=== PATIENT | male | born 1955 | race Caucasian/White ===

== ENCOUNTER 2022-05-15 13:22 | Emergency (ER) | payer MEDICARE, SELFPAY ==
[2022-05-15 13:35] VITALS: BP 143/77; PULSE 66; RESP 16; TEMP 36.7; O2SAT 100
--- NOTE | 2022-05-15 13:37 | ED.WOUNDLAC ---
HPI - Wound/Laceration General Chief Complaint: Wound/Laceration Stated Complaint: finger lac Time Seen by Provider: 05/15/22 13:37 Source: patient and RN notes reviewed Mode of arrival: ambulatory Limitations: no limitations History of Present Illness HPI narrative: 66-year-old male presents with concern for injury to the tip of the third digit of the left hand. He reports last night around 8 PM he was using a chain saw when he cut the digit. Reports that it bled for a few minutes and then the bleeding resolved. He reports he trimmed off excess skin that was hanging and a piece of nail that was hanging. He reports he is not up-to-date on his tetanus vaccine. He is also concerned for infection because the wound was very dirty. Reports he cleaned the wound and removed any debris that he saw. Extremity Location: Left: hand Related Data Allergies Allergy/AdvReac Type Severity Reaction Status Date / Time No Known Allergies Allergy Verified 05/15/22 13:31 Review of Systems Review of Systems: CONSTITUTIONAL: Denies malaise, chills, sweats, or fever. SKIN: Reports skin injury to the tip of the third left digit MUSCULOSKELETAL: Denies muscle skeletal pain, decreased range of motion, sensation or strength NEUROLOGIC: Denies numbness, weakness All systems reviewed & are unremarkable except as noted in HPI and below PMFSH Past Medical History Medical History (Updated 05/15/22 @ 13:47 by Tabitha Chester NP) Difficulty swallowing History of migraine headaches Pure hypercholesterolemia Surgical History Surgical History (Updated 10/04/19 @ 09:11 by Tari Oconnor CMA) H/O colonoscopy 2009 Family History Family History (Updated 10/04/19 @ 09:11 by Tari Oconnor CMA) Father Malignant neoplasm of prostate Mother Breast cancer Macular degeneration Social History Social History Smoking status: Never smoker Alcohol intake: current Comments At time of signature, agree with nursing past medical, surgical, social and family history. There is no relevant family history pertinent to the presenting complaint Exam Narrative: GENERAL: Well-appearing, well-nourished, and in no acute distress. HEAD: Normocephalic EYES: PERRLA, conjunctivae clear NECK: Supple. CHEST: Speaks in full sentences. No respiratory distress. HEART: Regular rate and rhythm. Normal and equal peripheral pulses. EXTREMITIES: Third digit of left hand has grossly normal strength and sensation. 5/5 strength with digit flexion, extension. Range of motion normal. No clubbing, cyanosis, or edema noted. Normal sensation of each side of finger. No scissoring. Good capillary refill and radial pulse. Distal capillary refill less than 3 seconds. Patient is right/left hand dominant SKIN: Warn, dry, intact, pink. Approximate 1cm x 0.25cm skin avulsion, with irregular margins noted to the tip of the third digit of the left hand, involving the very distal edge of the nailbed, which is also avulsed very slightly approximately 0.25 cm NEURO: Alert and oriented x3. PSYCH: Normal mood and affect Course Course Emergency Course: Patient is aware of diagnosis, understands and agrees to treatment plan. Anticipatory guidance given. Patient agrees to follow-up as directed and is aware of reasons to seek care at the emergency department. Portions of this record may have been created with voice recognition software Level of Care: Express Care Visit Vital Signs Vital signs: Vital Signs Temperature 98.1 F 05/15/22 13:35 Pulse Rate 66 05/15/22 13:35 Respiratory Rate 16 05/15/22 13:35 Blood Pressure 143/77 H 05/15/22 13:35 Pulse Oximetry 100 05/15/22 13:35 Temperature 98.1 F 05/15/22 13:35 Pulse Rate 66 05/15/22 13:35 Respiratory Rate 16 05/15/22 13:35 Blood Pressure 143/77 H 05/15/22 13:35 Pulse Oximetry 100 05/15/22 13:35 Reviewed. MDM - Wound/Laceration MDM Narrative Medical decision making narrative: Wound was
[2022-05-15] MEDS: TETANUS,DIPHTHERIA,AC PERTUSSIS ADULT (0.5 ML) BOOSTRIX IM (13:57)
== END 2022-05-15 14:00 | disposition home or self-care (01) ==
PROVIDERS: Emergency Provider Nurse Practitioner; PCP Internal Medicine
DX: S61.303A Unspecified open wound of left middle finger with damage to nail, initial encounter (principal); W29.3XXA Contact with powered garden and outdoor hand tools and machinery, initial encounter; Z23 Encounter for immunization; E78.00 Pure hypercholesterolemia, unspecified
CPT/HCPCS: 90471; 90715; 99213; G0463